=== PATIENT | male | born 1960 | race Caucasian/White ===

== ENCOUNTER 2016-10-23 21:13 | Observation (INO) | payer BC ==
[~2016-10-23] VITALS: Ht 180.3 cm; Wt 136.0 kg
[2016-10-23] MEDS ORDERED: ASPIRIN 324 MG CHEW ONE (21:27)
[2016-10-23] MEDS ORDERED: ATR10 PO (21:44)
[2016-10-23] MEDS ORDERED: GLC500 PO (21:44)
[2016-10-23] MEDS ORDERED: DIPH1TAB87 PO (21:44)
[2016-10-23] MEDS ORDERED: ATEN25TA PO (21:44)
[2016-10-23] MEDS ORDERED: PRLSR20 PO (21:44)
[2016-10-23] MEDS ORDERED: OMEP20TA PO (22:00)
[2016-10-23] MEDS ORDERED: CLB/200 PO (22:00)
[2016-10-23] MEDS ORDERED: METO50TA7 PO (22:00)
[2016-10-23] MEDS ORDERED: GABA-113 PO (22:00)
[2016-10-23] MEDS ORDERED: MULT-1056 PO (22:00)
[2016-10-23] MEDS ORDERED: ASPI81TA28 PO (22:00)
[2016-10-23] MEDS ORDERED: MCR/40125 PO (22:00)
[2016-10-23] MEDS ORDERED: WARF1TAB PO (22:00)
[2016-10-23] MEDS ORDERED: VGR50 PO (22:00)
[2016-10-23] MEDS ORDERED: TRAM-10 PO (22:00)
[2016-10-23] MEDS ORDERED: SODIUM CHLORIDE 0.9% 1000ML 1,000 ML IV STA (22:07)
[2016-10-23] MEDS ORDERED: MECLIZINE HCL 25 MG TAB PO STA (22:07)
--- NOTE | 2016-10-23 22:15 | EMERGENCY ROOM VISIT NOTE ---
History Report prepared by Marixa: Javier Espinoza Under the Supervision of: Dr. Herbie Patricio D.O. First contact with patient: 21:57 Chief Complaint: DIZZY Stated Complaint: DIZZY Nursing Triage Summary: pt states started feeling dizzy with head movement around 1800. Hx of vertigo. History of Present Illness The patient is a 56 year old male who presents to the Emergency Room with complaints of persistent dizziness that started around 1730 today. The patient describes a room-spinning sensation making it difficult for him to keep his balance. The patient initially became dizzy when he bent down to light a fire. He was outdoors all day and did not drink much fluids. The patient also complains of nausea but denies vomiting. He has a history of vertigo and notes that he felt similar then. The patient is not currently dizzy but feels it again when he moves his head. The patient's face felt numb for a brief period earlier today. His did not notice any speech slurring. The patient did not miss any of his medications. Source of History: patient Onset: 1730 today Position: other (global) Quality: other (dizziness) Timing: other (persistent) Modifying Factors (Worsening): movement Associated Symptoms: + nausea, + numbness, No vomiting Review of Systems See HPI for pertinent positives and negatives. A total of ten systems were reviewed and were otherwise negative. Past Medical & Surgical Medical Problems: (1) Diabetes (2) GERD (gastroesophageal reflux disease) (3) History of vertigo Family History No pertinent family history Social History Smoking Status: Former Smoker Marital Status: Housing Status: lives with family Current/Historical Medications Scheduled Aspirin (Aspirin Ec), 81 MG PO QAM Celecoxib (CeleBREX), 200 MG PO DAILY AT AM & NOON Gabapentin (Neurontin), 900 MG PO TID Metoprolol Succ (Toprol Xl) (Toprol-Xl), 50 MG PO QAM Multiple Vitamins W/ Minerals (Multivitamin Men 50+), 1 TAB PO QAM Omeprazole (Omeprazole), 20 MG PO QAM Telmisartan/Hctz (Micardis Hct 40MG/12.5MG), 2 TABS PO QAM Warfarin Sodium (Coumadin), Unknown Dose PO BID Scheduled PRN Sildenafil Citrate (Viagra), 50 MG PO PRN PRN for PRN Tramadol (Ultram), 50 MG PO Q8H PRN for Pain Allergies Coded Allergies: Acetaminophen (Verified Allergy, Severe, CHILLS, SWEATS, 10/23/16) Atorvastatin (Verified Allergy, Severe, SEVERE LEG CRAMPS, 10/23/16) Oxycodone (Verified Allergy, Severe, CHILLS, SWEATS, 10/23/16) Physical Exam Vital Signs Date Time Temp Pulse Resp B/P Pulse Ox O2 Delivery O2 Flow Rate FiO2 10/23/16 22:55 62 16 172/87 99 Room Air 10/23/16 22:12 98 Room Air 10/23/16 21:19 107 26 179/102 98 Room Air 10/23/16 21:19 82 Physical Exam GENERAL: Awake, alert, well-appearing, in no distress HENT: Normocephalic, atraumatic. Oropharynx unremarkable. EYES: Normal conjunctiva. Sclera non-icteric. NECK: Supple. No nuchal rigidity. FROM. No JVD. RESPIRATORY: Clear to auscultation. CARDIAC: Regular rate, normal rhythm. Extremities warm and well perfused. Pulses equal. ABDOMEN: Soft, non-distended. No tenderness to palpation. No rebound or guarding. No masses. RECTAL: Deferred. MUSCULOSKELETAL: Chest examination reveals no tenderness. The back is symmetrical on inspection without obvious abnormality. There is no CVA tenderness to palpation. No joint edema. LOWER EXTREMITIES: Calves are equal size bilaterally and non-tender. No edema. No discoloration. NEURO: Normal sensorium. No sensory or motor deficits noted. SKIN: No rash or jaundice noted. Medical Decision & Procedures ER Provider Diagnostic Interpretation: CT results as stated below per my review and radiologist interpretation HEAD CT NONCONTRAST CT DOSE: 614.27 mGy.cm HISTORY: dizziness TECHNIQUE: Multiaxial CT images of the head were performed without the use of intravenous contrast. Automated exposure control was utilized for this study. Comparison: None. Findings: The paranasal sinuses and mastoid air cells are clear. The calvarium and skull base are intact. The ventricles and sulci are within normal limits. There is no mass, hematoma, midline shift. No acute territorial infarct. A 4 mm hypodense focus within the left cerebellar hemisphere on image 11. Impression: A 4 mm hypodensity within the left cerebellar hemisphere. This is consistent within age-indeterminate lacunar infarct. Otherwise, no acute intracranial abnormality. Electronically signed by: Cipriano Banks M.D. 10/23/2016 11:10 PM Dictated Date/Time: 10/23/2016 11:01 PM Laboratory Results 10/23/16 20:45 Red Blood Count 5.21, Mean Corpuscular Volume 87.1, Mean Corpuscular Hemoglobin 30.5, Mean Corpuscular Hemoglobin Concent 35.0, Mean Platelet Volume 10.5, Neutrophils (%) (Auto) 82.6, Lymphocytes (%) (Auto) 11.1, Monocytes (%) (Auto) 5.0, Eosinophils (%) (Auto) 0.7, Basophils (%) (Auto) 0.3, Neutrophils # (Auto) 8.59, Lymphocytes # (Auto) 1.15, Monocytes # (Auto) 0.52, Eosinophils # (Auto) 0.07, Basophils # (Auto) 0.03 10/23/16 20:45 Test 10/23/16 20:45 10/23/16 22:13 10/23/16 22:20 10/23/16 22:24 White Blood Count 10.39 K/uL (4.8-10.8) Red Blood Count 5.21 M/uL (4.7-6.1) Hemoglobin 15.9 g/dL (14.0-18.0) Hematocrit 45.4 % (42-52) Mean Corpuscular Volume 87.1 fL (80-100) Mean Corpuscular Hemoglobin 30.5 pg (25-34) Mean Corpuscular Hemoglobin Concent 35.0 g/dl (32-36) Platelet Count 264 K/uL (130-400) Mean Platelet Volume 10.5 fL (7.4-10.4) Neutrophils (%) (Auto) 82.6 % Lymphocytes (%) (Auto) 11.1 % Monocytes (%) (Auto) 5.0 % Eosinophils (%) (Auto) 0.7 % Basophils (%) (Auto) 0.3 % Neutrophils # (Auto) 8.59 K/uL (1.4-6.5) Lymphocytes # (Auto) 1.15 K/uL (1.2-3.4) Monocytes # (Auto) 0.52 K/uL (0.11-0.59) Eosinophils # (Auto) 0.07 K/uL (0-0.5) Basophils # (Auto) 0.03 K/uL (0-0.2) RDW Standard Deviation 45.5 fL (36.4-46.3) RDW Coefficient of Variation 14.1 % (11.5-14.5) Immature Granulocyte % (Auto) 0.3 % Immature Granulocyte # (Auto) 0.03 K/uL (0.00-0.02) Anion Gap 9.0 mmol/L (3-11) Est Creatinine Clear Calc Drug Dose 162.0 ml/min Estimated GFR () 119.9 Estimated GFR (Non- 103.4 BUN/Creatinine Ratio 31.3 (10-20) Calcium Level 8.9 mg/dl (8.5-10.1) Total Bilirubin 0.4 mg/dl (0.2-1) Direct Bilirubin 0.1 mg/dl (0-0.2) Aspartate Amino Transf (AST/SGOT) 22 U/L (15-37) Alanine Aminotransferase (ALT/SGPT) 25 U/L (12-78) Alkaline Phosphatase 101 U/L (45-117) Total Protein 7.5 gm/dl (6.4-8.2) Albumin 4.0 gm/dl (3.4-5.0) Chemistry Specimen Hemolysis Bedside Troponin I 0.010 ng/ml (0-0.045) Urine Color YELLOW Urine Appearance CLEAR (CLEAR) Urine pH 6.5 (4.5-7.5) Urine Specific [place] 1.024 (1.000-1.030) Urine Protein NEG (NEG) Urine Glucose (UA) NEG (NEG) Urine Ketones NEG (NEG) Urine Occult Blood 1+ (NEG) Urine Nitrite NEG (NEG) Urine Bilirubin NEG (NEG) Urine Urobilinogen NEG (NEG) Urine Leukocyte Esterase NEG (NEG) Urine WBC (Auto) 0 /hpf (0-5) Urine RBC (Auto) 10-30 /hpf (0-4) Urine Hyaline Casts (Auto) 1-5 /lpf (0-5) Urine Epithelial Cells (Auto) 5-10 /lpf (0-5) Urine Bacteria (Auto) NEG (NEG) Bedside Glucose 114 mg/dl (70-99) Laboratory results reviewed by me Medications Administered Medications (Trade) Dose Ordered Sig/Arvind Route Start Time Stop Time Status Last Admin Dose Admin Sodium Chloride (Nss 1000ml) 1,000 ml @ 999 mls/hr Q1H1M STAT IV 10/23/16 22:07 10/23/16 23:07 DC 10/23/16 22:15 999 MLS/HR Meclizine HCl (Antivert Tab) 25 mg NOW STAT PO 10/23/16 22:07 10/23/16 22:10 DC 10/23/16 22:14 25 MG ECG Indication: other (dizziness) Rate (beats per minute): 71 Rhythm: sinus rhythm Findings: 1st degree AV block, RBBB, left axis deviation ED Course 2151: The patient was evaluated in room B6. A complete history and physical exam was performed. 2206: Antivert 25 mg PO, NSS 1000 ml @ 999 mls/hr. 2326: [facility]. The patient will be evaluated. 2329: Updated the patient. The patient is feeling better. Blood pressure is down. GCS 15. The patient was given full strength aspirin by EMS [employer]OR. Medical Decision Differential diagnosis includes syncope, near syncope, vertigo, TIA, dysrhythmia , metabolic derangement, dehydration. Patient's initial blood pressure is 172/102. Patient has a nonfocal neurologic exam. The symptoms started at 5 PM. Patient is not a TPA candidate at this time his NIH score is 0 Consults Time Called: [phone] Consulting Physician[facility] Returned Call: [phone] The patient will be evaluated Impression Primary Impression: TIA (transient ischemic attack) Additional Impression: Dizziness Scribe Attestation The scribe's documentation has been prepared under my direction and personally reviewed by me in its entirety. I confirm that the note above accurately reflects all work, treatment, procedures, and medical decision making performed by me. Departure Information Dispostion Being Evaluated By Hospitalist Referrals No Doctor, Assigned (PCP) Patient Instructions My [facility] Problem Qualifiers Primary Impression: TIA (transient ischemic attack) Transient cerebral ischemia type: unspecified Qualified Codes: G45.9 - Transient cerebral ischemic attack, unspecified
[2016-10-23 22:18] LABS: BASO % 0.3 %; BASO ABS # 0.03 K/uL (0-0.2); COMPLETE YES; EOS % 0.7 %; HEMATOCRIT 45.4 % (42-52); IG% 0.3 %; LYMPH % 11.1 %; LYMPH ABS # 1.15 K/uL (1.2-3.4); MEAN CELL VOLUME 87.1 fL (80-100); MEAN CORPUSCULAR HEMOGLOBIN 30.5 pg (25-34); MEAN PLATELET VOLUME 10.5 fL (7.4-10.4); NEUT % 82.6 %; PLATELET COUNT 264 K/uL (130-400); RED BLOOD COUNT 5.21 M/uL (4.7-6.1); WHITE BLOOD COUNT 10.39 K/uL (4.8-10.8)
[2016-10-23 22:33] LABS: BUN/CREATININE RATIO 31.3 (10-20); CALCIUM 8.9 mg/dl (8.5-10.1); CREATININE 0.71 mg/dl (0.60-1.40); POTASSIUM 3.6 mmol/L (3.5-5.1)
[2016-10-23 22:47] LABS: URINE APPEARANCE CLEAR (CLEAR); URINE BILIRUBIN NEG (NEG); URINE COLOR YELLOW; URINE NITRITE NEG (NEG); URINE PH 6.5 (4.5-7.5); URINE SPECIFIC GRAVITY 1.024 (1.000-1.030); UROBILINOGEN NEG (NEG)
[2016-10-23 22:48] LABS: MANUAL MICROSCOPIC REQUIRED? NO; REVIEW REQ? NO
--- NOTE | 2016-10-23 23:11 | DIAGNOSTIC IMAGING REPORT ---
HEAD CT NONCONTRAST CT DOSE: 614.27 mGy.cm HISTORY: dizziness TECHNIQUE: Multiaxial CT images of the head were performed without the use of intravenous contrast. Automated exposure control was utilized for this study. Comparison: None. Findings: The paranasal sinuses and mastoid air cells are clear. The calvarium and skull base are intact. The ventricles and sulci are within normal limits. There is no mass, hematoma, midline shift. No acute territorial infarct. A 4 mm hypodense focus within the left cerebellar hemisphere on image 11. Impression: A 4 mm hypodensity within the left cerebellar hemisphere. This is consistent within age-indeterminate lacunar infarct. Otherwise, no acute intracranial abnormality. Electronically signed by: Cipriano Banks M.D. 10/23/2016 11:10 PM Dictated Date/Time: 10/23/2016 11:01 PM
[2016-10-24] VITALS (7 sets, daily range): BP systolic 155–191; BP diastolic 93–120; PULSE 56–64; TEMP 36.6–36.7; O2SAT 96–100; Ht 180.3 cm; Wt 136.0 kg
[2016-10-24] MEDS ORDERED: PHARMACIST DISCHARGE MED REC CONSULT PRN (00:15)
[2016-10-24] MEDS ORDERED: ONDANSETRON INJ 2 MG/ML 2 ML VIAL IV PRN (00:15)
[2016-10-24 00:31] LABS: INR 2.8 (0.9-1.1)
--- NOTE | 2016-10-24 00:32 | History and Physical ---
History & Physical Date & Time of Service: Oct 24, 2016 at 00:32 Chief Complaint: DIZZY Primary Care Physician: Baljinder Carson D.O. History of Present Illness Source: patient, family Patient is a 56 Yr old male with PMH of HTN, Spinal stenosis, H/O Bicuspid aortic valve S/P AVR, Lumbago and other problems presents with history of sudden onset of dizziness which started around 5.30PM today. Patient states he had an episode of vertigo 2 yrs ago but these symptoms seemed to be different. She states experiencing "room spinning" sensation associated with difficulty to balance himself. States dizziness improves with closing his eyes and worsens with movement. Also states having nausea, bilateral lower extremity weakness and right sided facial tingling/numbness sensation which lasted for more than an hour. Currently he still feels he has some numbness of his face and his bilateral leg weakness is improving. Also states having right sided retrobulbar headache which is chronic for him. Denies any history of speech difficulty, facial deformity, fall, head trauma, blurry or double vision, bowel/bladder incontinence, chest pain, SOB, fever, chills, diarrhea, urinary symptoms. He takes Aspirin and Coumadin and denies missing his doses. Past Medical/Surgical History Medical Problems: (1) Diabetes Status: Chronic (2) GERD (gastroesophageal reflux disease) Status: Chronic (3) History of vertigo Status: Chronic PSH: B/L knee replacement S/P AV replacement Family History No pertinent family history Mother: Lung Cancer Father:Cancer Social History Smoking Status: Former Smoker Alcohol Use: socially Drug Use: marijuana Marital Status: Allergies Coded Allergies: Acetaminophen (Verified Allergy, Severe, CHILLS, SWEATS, 10/23/16) Atorvastatin (Verified Allergy, Severe, SEVERE LEG CRAMPS, 10/23/16) Oxycodone (Verified Allergy, Severe, CHILLS, SWEATS, 10/23/16) Home Medications Scheduled Aspirin (Aspirin Ec), 81 MG PO QAM Celecoxib (CeleBREX), 200 MG PO DAILY AT AM & NOON Gabapentin (Neurontin), 900 MG PO TID Metoprolol Succ (Toprol Xl) (Toprol-Xl), 50 MG PO QAM Multiple Vitamins W/ Minerals (Multivitamin Men 50+), 1 TAB PO QAM Omeprazole (Omeprazole), 20 MG PO QAM Telmisartan/Hctz (Micardis Hct 40MG/12.5MG), 2 TABS PO QAM Warfarin Sodium (Coumadin), Unknown Dose PO BID Scheduled PRN Sildenafil Citrate (Viagra), 50 MG PO PRN PRN for PRN Tramadol (Ultram), 50 MG PO Q8H PRN for Pain Review of Systems See HPI for pertinent positives & negatives. A total of 10 systems reviewed and were otherwise negative. Physical Exam Vital Signs Date Time Temp Pulse Resp B/P Pulse Ox O2 Delivery O2 Flow Rate FiO2 10/23/16 23:50 77 20 160/97 99 Room Air 10/23/16 22:55 62 16 172/87 99 Room Air 10/23/16 22:12 98 Room Air 10/23/16 21:19 107 26 179/102 98 Room Air 10/23/16 21:19 82 General Appearance: WD/WN, no apparent distress Head: normocephalic, atraumatic Eyes: normal inspection, PERRL, EOMI, sclerae normal ENT: normal ENT inspection, hearing grossly normal Neck: supple, no JVD, trachea midline Respiratory/Chest: chest non-tender, lungs clear, normal breath sounds, no respiratory distress, no accessory muscle use Cardiovascular: regular rate, rhythm, no edema, no murmur Abdomen/GI: normal bowel sounds, non tender, soft Back: normal inspection Extremities/Musculoskelatal: normal inspection, no pedal edema Neurologic/Psych: brush sander II-XII nml as tested, no motor/sensory deficits, alert, normal mood/affect, oriented x 3 Skin: normal color, warm/dry Diagnostics Laboratory Results Results Past 24 Hours Test 10/23/16 20:45 10/23/16 22:13 10/23/16 22:20 10/23/16 22:24 Range/Units White Blood Count 10.39 4.8-10.8 K/uL Red Blood Count 5.21 4.7-6.1 M/uL Hemoglobin 15.9 14.0-18.0 g/dL Hematocrit 45.4 42-52 % Mean Corpuscular Volume 87.1 80-100 fL Mean Corpuscular Hemoglobin 30.5 25-34 pg Mean Corpuscular Hemoglobin Concent 35.0 32-36 g/dl Platelet Count 264 130-400 K/uL Mean Platelet Volume 10.5 7.4-10.4 fL Neutrophils (%) (Auto) 82.6 % Lymphocytes (%) (Auto) 11.1 % Monocytes (%) (Auto) 5.0 % Eosinophils (%) (Auto) 0.7 % Basophils (%) (Auto) 0.3 % Neutrophils # (Auto) 8.59 1.4-6.5 K/uL Lymphocytes # (Auto) 1.15 1.2-3.4 K/uL Monocytes # (Auto) 0.52 0.11-0.59 K/uL Eosinophils # (Auto) 0.07 0-0.5 K/uL Basophils # (Auto) 0.03 0-0.2 K/uL RDW Standard Deviation 45.5 36.4-46.3 fL RDW Coefficient of Variation 14.1 11.5-14.5 % Immature Granulocyte % (Auto) 0.3 % Immature Granulocyte # (Auto) 0.03 0.00-0.02 K/uL Prothrombin Time 31.0 9.0-12.0 SECONDS Prothromb Time International Ratio 2.8 0.9-1.1 Sodium Level 140 136-145 mmol/L Potassium Level 3.6 3.5-5.1 mmol/L Chloride Level 103 98-107 mmol/L Carbon Dioxide Level 28 21-32 mmol/L Anion Gap 9.0 3-11 mmol/L Blood Urea Nitrogen 22 7-18 mg/dl Creatinine 0.71 0.60-1.40 mg/dl Est Creatinine Clear Calc Drug Dose 162.0 ml/min Estimated GFR () 119.9 Estimated GFR (Non- 103.4 BUN/Creatinine Ratio 31.3 10-20 Random Glucose 128 70-99 mg/dl Calcium Level 8.9 8.5-10.1 mg/dl Total Bilirubin 0.4 0.2-1 mg/dl Direct Bilirubin 0.1 0-0.2 mg/dl Aspartate Amino Transf (AST/SGOT) 22 15-37 U/L Alanine Aminotransferase (ALT/SGPT) 25 12-78 U/L Alkaline Phosphatase 101 45-117 U/L Total Protein 7.5 6.4-8.2 gm/dl Albumin 4.0 3.4-5.0 gm/dl Chemistry Specimen Hemolysis Bedside Troponin I 0.010 0-0.045 ng/ml Urine Color YELLOW Urine Appearance CLEAR CLEAR Urine pH 6.5 4.5-7.5 Urine Specific [place] 1.024 1.000-1.030 Urine Protein NEG NEG Urine Glucose (UA) NEG NEG Urine Ketones NEG NEG Urine Occult Blood 1+ NEG Urine Nitrite NEG NEG Urine Bilirubin NEG NEG Urine Urobilinogen NEG NEG Urine Leukocyte Esterase NEG NEG Urine WBC (Auto) 0 0-5 /hpf Urine RBC (Auto) 10-30 0-4 /hpf Urine Hyaline Casts (Auto) 1-5 0-5 /lpf Urine Epithelial Cells (Auto) 5-10 0-5 /lpf Urine Bacteria (Auto) NEG NEG Bedside Glucose 114 70-99 mg/dl Diagnostic Radiology CT head: A 4 mm hypodensity within the left cerebellar hemisphere. This is consistent within age-indeterminate lacunar infarct. Otherwise, no acute intracranial abnormality. EKG EKG: NSR, 1st degree AV block, RBBB Impression Assessment and Plan Acute CVA/TIA: Presented with dizziness, B/L LE weakness, balance issues, R facial numbness/ tingling, Nausea Currently no focal deficits on exam Not a candidate for tPA- Passed the window period Admit in Tele CT head: showed: age-indeterminate lacunar infarct of left cerebellar hemisphere. Stroke work up including lipid panel, A1C, MRI Brain, Carotid duplex, ECHO Speech and swallow eval Continue aspirin, Coumadin. Start Zocor. Patient has allergy to Lipitor Neuro checks, Neurology consult PT/OT Allow permissive HTN in setting of acute CVA. Hold Home HTN meds NPO for now PRN Zofran for nausea HTN: Mildly elevated Hold Home HTN meds in setting of acute CVA H/O Bicuspid Aortic Valve S/P AVR Continue ASA, Coumadin INR: therapeutic: 2.8 Takes 7.5 mg Coumadin daily except( Tue and Jayashree:10mg) at home Lumbago/H/O Spinal Stenosis: Stable S/P gastric band surgery Stable UA:Microscopic Hematuria Denies any bleeding issues Hb stable On ASA, Coumadin Monitor DVT Px: SCDs, INR: therapeutic CODE STATUS: Full code Disposition: Admit in Telemetry VTE Prophylaxis VTE Risk Assessment Done? Y/N: Yes Risk Level: Moderate
[2016-10-24] MEDS ORDERED: IV FLUIDS COMPLETED PRN (02:45)
[2016-10-24] MEDS: SODIUM CHLORIDE 0.9% 1000ML 1,000 ML IV SCH ×2 (05:01→17:01)
[2016-10-24] MEDS ORDERED: LORAZEPAM 2 MG/ML 1 ML VIAL IV ONE (06:45)
[2016-10-24] MEDS: TRAMADOL HCL 50 MG TAB PO PRN ×3 (07:54→23:25)
[2016-10-24] MEDS: GABAPENTIN 300 MG CAP PO SCH ×3 (07:55→21:19)
[2016-10-24] MEDS: MECLIZINE HCL 12.5 MG TAB PO PRN ×2 (07:55→16:59)
[2016-10-24] MEDS: CeleBREX 200 MG CAP PO SCH ×2 (07:55→18:54)
[2016-10-24] MEDS: PANTOprazole SOD 40 MG TAB PO SCH (07:55)
[2016-10-24] MEDS: ASPIRIN 81 MG ECTAB PO SCH (07:56)
[2016-10-24 08:30] LABS: INR 3.3 (0.9-1.1); PROTHROMBIN TIME (PATIENT) 36.6 SECONDS (9.0-12.0)
--- NOTE | 2016-10-24 08:36 | DIAGNOSTIC IMAGING REPORT ---
CAROTID ARTERY ULTRASOUND CLINICAL HISTORY: Stroke COMPARISON STUDY: None. TECHNIQUE: Real-time, grayscale, and color Doppler sonography of the carotid and vertebral arteries was performed. Images were viewed in the transverse and longitudinal planes. FINDINGS: There is mild atherosclerotic plaque. Velocity measurements are listed below. COMMON CAROTID PEAK SYSTOLIC VELOCITY (CM/S): RIGHT 61 LEFT 63 ICA PEAK SYSTOLIC VELOCITY (CM/S): RIGHT 72 LEFT 72 Systolic ratios between the internal to common carotid arteries were normal. Antegrade flow is seen in the vertebral arteries. The external carotid arteries are patent. Blood pressure could not be obtained in this patient due to IV. IMPRESSION: No evidence of a hemodynamically significant stenosis. Electronically signed by: Dangelo Victoria M.D. 10/24/2016 8:35 AM Dictated Date/Time: 10/24/2016 8:34 AM
--- NOTE | 2016-10-24 11:08 | Progress Note ---
Medicine Progress Note Date & Time of Visit: Oct 24, 2016 at 11:07. Subjective patient seen sitting up in bed, appears comfortable states dizziness, facial numbness have resolved still feels unsteady when trying to ambulate denies chest pain, dyspnea, palpitations no other symptoms Objective Last 8 Hrs Date Time Temp Pulse Resp B/P Pulse Ox O2 Delivery O2 Flow Rate FiO2 10/24/16 08:05 Room Air 10/24/16 07:50 36.6 56 18 165/97 100 Room Air 10/24/16 04:00 Room Air Physical Exam: General- oriented x 3, not in distress, speaks in sentences with no effort Head- atraumatic Eyes- EOMI, anicteric ENT- oropharynx clear Neck- supple, no JVD, no adenopathy, no thyromegaly no bruits appreciated Lungs- clear to auscultation b/l Heart- regular rhythm; no murmur, normal rate Abdomen- normal bowel sounds, soft, nontender Extremities- no pretibial edema, no calf tenderness; peripheral pulses intact Neuro- alert, oriented x 3; CN 2-12 grossly intact, motor 5/5 , sensation 100% on all ext, somewhat unsteady with walking Skin- warm & dry Laboratory Results: Last 24 Hours Test 10/23/16 20:45 10/23/16 22:13 10/23/16 22:20 10/23/16 22:24 White Blood Count 10.39 K/uL Red Blood Count 5.21 M/uL Hemoglobin 15.9 g/dL Hematocrit 45.4 % Mean Corpuscular Volume 87.1 fL Mean Corpuscular Hemoglobin 30.5 pg Mean Corpuscular Hemoglobin Concent 35.0 g/dl Platelet Count 264 K/uL Mean Platelet Volume 10.5 fL Neutrophils (%) (Auto) 82.6 % Lymphocytes (%) (Auto) 11.1 % Monocytes (%) (Auto) 5.0 % Eosinophils (%) (Auto) 0.7 % Basophils (%) (Auto) 0.3 % Neutrophils # (Auto) 8.59 K/uL Lymphocytes # (Auto) 1.15 K/uL Monocytes # (Auto) 0.52 K/uL Eosinophils # (Auto) 0.07 K/uL Basophils # (Auto) 0.03 K/uL RDW Standard Deviation 45.5 fL RDW Coefficient of Variation 14.1 % Immature Granulocyte % (Auto) 0.3 % Immature Granulocyte # (Auto) 0.03 K/uL Prothrombin Time 31.0 SECONDS Prothromb Time International Ratio 2.8 Sodium Level 140 mmol/L Potassium Level 3.6 mmol/L Chloride Level 103 mmol/L Carbon Dioxide Level 28 mmol/L Anion Gap 9.0 mmol/L Blood Urea Nitrogen 22 mg/dl Creatinine 0.71 mg/dl Est Creatinine Clear Calc Drug Dose 162.0 ml/min Estimated GFR () 119.9 Estimated GFR (Non- 103.4 BUN/Creatinine Ratio 31.3 Random Glucose 128 mg/dl Calcium Level 8.9 mg/dl Total Bilirubin 0.4 mg/dl Direct Bilirubin 0.1 mg/dl Aspartate Amino Transf (AST/SGOT) 22 U/L Alanine Aminotransferase (ALT/SGPT) 25 U/L Alkaline Phosphatase 101 U/L Total Protein 7.5 gm/dl Albumin 4.0 gm/dl Chemistry Specimen Hemolysis Bedside Troponin I 0.010 ng/ml Urine Color YELLOW Urine Appearance CLEAR Urine pH 6.5 Urine Specific [place] 1.024 Urine Protein NEG Urine Glucose (UA) NEG Urine Ketones NEG Urine Occult Blood 1+ Urine Nitrite NEG Urine Bilirubin NEG Urine Urobilinogen NEG Urine Leukocyte Esterase NEG Urine WBC (Auto) 0 /hpf Urine RBC (Auto) 10-30 /hpf Urine Hyaline Casts (Auto) 1-5 /lpf Urine Epithelial Cells (Auto) 5-10 /lpf Urine Bacteria (Auto) NEG Bedside Glucose 114 mg/dl Test 10/24/16 08:01 Prothrombin Time 36.6 SECONDS Prothromb Time International Ratio 3.3 Assessment & Plan 56 year old male with history of Mechanical Aortic Valve on coumadin, Hypertension, Spinal Stenosis presenting with dizziness, facial numbness. DIZZINESS, ATAXIA, FACIAL NUMBNESS R/O CVA/TIA CT head: showed: age-indeterminate lacunar infarct of left cerebellar hemisphere. -- check Brain MRI, Neck MRA -- already on Aspirin, Coumadin intolerant to statins keep BP on the high side- hold Metoprolol, Talmesartan/HCTZ -- discussed case with Dr. Luna HTN: keep BP on the high side- hold Metoprolol, Talmesartan/HCTZ H/O Bicuspid Aortic Valve S/P AVR Continue ASA, Coumadin INR: therapeutic: 3.3 Takes 7.5 mg Coumadin daily except( Tue and Jayashree:10mg) at home Lumbago/H/O Spinal Stenosis: Stable S/P gastric band surgery Stable UA:Microscopic Hematuria Denies any bleeding issues Hb stable On ASA, Coumadin Monitor DVT Px: SCDs, INR: therapeutic CODE STATUS: Full code Disposition: pending lives at home with family Neurology eval in progress Current Inpatient Medications: Current Inpatient Medications Medications (Trade) Dose Ordered Sig/Arvind Route Start Time Stop Time Status Last Admin Dose Admin Miscellaneous Information 1 ea 1 ea UD PRN N/A 10/24/16 00:15 11/23/16 00:14 Sodium Chloride (Nss 1000ml) 1,000 ml @ 75 mls/hr [id number] IV 10/24/16 00:05 11/23/16 00:04 10/24/16 05:01 75 MLS/HR Ondansetron HCl (Zofran Inj) 4 mg Q6H PRN IV 10/24/16 00:15 11/23/16 00:14 Meclizine HCl (Antivert Tab) 12.5 mg TID PRN PO 10/24/16 00:30 11/23/16 00:29 10/24/16 07:55 12.5 MG Aspirin (Ecotrin Tab) 81 mg QAM PO 10/24/16 09:00 11/23/16 08:59 10/24/16 07:56 81 MG Gabapentin (Neurontin Cap) 900 mg TID PO 10/24/16 09:00 11/23/16 08:59 10/24/16 07:55 900 MG Tramadol HCl (Ultram Tab) 50 mg Q8H PRN PO 10/24/16 00:30 11/23/16 00:29 10/24/16 07:54 50 MG Pantoprazole Sodium (Protonix Tab) 40 mg QAM PO 10/24/16 09:00 11/23/16 08:59 10/24/16 07:55 40 MG Celecoxib (CeleBREX CAP) 200 mg BID PO 10/24/16 09:00 11/23/16 08:59 10/24/16 07:55 200 MG Warfarin Sodium (Coumadin Tab) 7.5 mg SuMoWeFrSa@1600 PO 10/24/16 16:00 11/23/16 15:59 Miscellaneous (Iv Fluids Completed) 1 ea PRN PRN N/A 10/24/16 02:45 10/24/17 02:44 Warfarin Sodium (Coumadin Tab) 10 mg TuTh@1600 PO 10/26/16 16:00 11/25/16 15:59
[2016-10-24] MEDS ORDERED: METOPROLOL SUCC 50MG EXT REL TAB PO ONE (13:31)
[2016-10-24] MEDS ORDERED: LORAZEPAM 2 MG/ML 1 ML VIAL ONE (14:31)
--- NOTE | 2016-10-24 15:41 | ECHOCARDIOGRAM REPORT ---
*NOTICE TO RECEIVING LIBERTARIAN AGENCY This information is strictly Confidential and protected under [place] law. [place] law prohibits you from making any further disclosure of this information unless further disclosure is expressly permitted by the written consent of the person to whom it pertains or is authorized by law. A general authorization for the release of medical or other information is not sufficient for this purpose. Hospital accepts no responsibility if the information is made available to any other person, INCLUDING THE PATIENT. Interpretation Summary * Name: FLAKITA MISTRY Study Date: 10/24/2016 09:04 AM BP: 185/94 mmHg * Patient Location: C.2E\S\E202\S\1 HR: 64 * : 1960 (M/d/yyyy) Gender: Male Height: 71 in * Age: 56 yrs Ethnicity: CA Weight: 307 lb * Ordering Physician: Luis Yang * Referring Physician: Self, Referred * Performed By: Kalyn Ferrari RCS * * Reason For Study: CVA * BSA: 2.5 m2 * The study was technically limited. * -- Conclusions -- * This study is technically limited. * Atrial septum appears to be intact but contrast study was poor. * There is a bioprosthetic aortic valve. * There is moderate concentric left ventricular hypertrophy. * Ejection Fraction = 60-65%. * The right ventricular systolic function is normal. * If clinically indicated, recommend DIO. Procedure Details * A complete two-dimensional transthoracic echocardiogram was performed (2D, M-mode, Doppler and color flow Doppler). * A saline contrast injection was performed to assess for cardiac shunting. * The injection was performed through an intravenous line in the left arm. * A total of 20 cc of agitated saline was given. * The attending nurse who injected the saline contrast was Mile Ayala RN. Left Ventricle * The left ventricle is normal in size. * There is moderate concentric left ventricular hypertrophy. * Ejection Fraction = 60-65%. * The left ventricular wall motion is normal. Right Ventricle * The right ventricle is normal size. * The right ventricular systolic function is normal. Atria * The left atrial size is normal. * Right atrial size is normal. * The interatrial septum is intact with no evidence for an atrial septal defect. Mitral Valve * There is moderate mitral annular calcification. * The mitral valve leaflets appear thickened, but open well. * Significant mitral regurgitation is absent. Tricuspid Valve * The tricuspid valve is not well visualized, but is grossly normal. * Significant tricuspid regurgitation is absent. Aortic Valve * The aortic valve is not well visualized. * No hemodynamically significant valvular aortic stenosis. * There is no significant aortic regurgitation. * There is a bioprosthetic aortic valve. Pulmonic Valve * The pulmonic valve is not well visualized. * There is no significant pulmonary regurgitation. MMode 2D Measurements and Calculations IVSd 1.1 cm IVSs 1.3 cm LVIDd 4.8 cm LVIDs 3.3 cm LVPWd 1.1 cm LVPWs 1.4 cm IVS/LVPW 1.0 FS 31.7 % EDV(Teich) 105.8 ml ESV(Teich) 42.7 ml EF(Teich) 59.7 % EDV(cubed) 108.3 ml ESV(cubed) 34.5 ml EF(cubed) 68.2 % % IVS thick 22.1 % % LVPW thick 24.7 % LV mass(C)d 187.8 grams LV mass(C)dI 74.2 grams/m\S\2 LV mass(C)s 145.2 grams LV mass(C)sI 57.4 grams/m\S\2 CO(Teich) 4.2 l/min CI(Teich) 1.7 l/min/m\S\2 SV(Teich) 63.1 ml SI(Teich) 25.0 ml/m\S\2 CO(cubed) 4.9 l/min CI(cubed) 2.0 l/min/m\S\2 SV(cubed) 73.9 ml SI(cubed) 29.2 ml/m\S\2 Ao root diam 2.9 cm Ao root area 6.7 cm\S\2 LA dimension 3.5 cm LA/Ao 1.2 LVAd ap4 43.1 cm\S\2 LVLd ap4 9.7 cm EDV(MOD-sp4) 158.0 ml LVAs ap4 23.0 cm\S\2 LVLs ap4 7.9 cm ESV(MOD-sp4) 56.0 ml EF(MOD-sp4) 64.6 % LVAd ap2 38.7 cm\S\2 LVLd ap2 9.7 cm EDV(MOD-sp2) 129.0 ml LVAs ap2 19.2 cm\S\2 LVLs ap2 8.1 cm ESV(MOD-sp2) 40.0 ml EF(MOD-sp2) 69.0 % CO(MOD-sp4) 6.8 l/min CI(MOD-sp4) 2.7 l/min/m\S\2 SV(MOD-sp4) 102.0 ml SI(MOD-sp4) 40.3 ml/m\S\2 CO(MOD-sp2) 6.0 l/min CI(MOD-sp2) 2.4 l/min/m\S\2 SV(MOD-sp2) 89.0 ml SI(MOD-sp2) 35.2 ml/m\S\2 Doppler Measurements and Calculations MV E max dino 101.1 cm/sec MV A max dino 90.7 cm/sec MV E/A 1.1 MV P1/2t max dino 142.8 cm/sec MV P1/2t 87.0 msec MVA(P1/2t) 2.5 cm\S\2 MV dec slope 481.0 cm/sec\S\2 MV dec time 0.26 sec Ao V2 max 285.6 cm/sec Ao max PG 32.6 mmHg Ao max PG (full) 29.4 mmHg Ao V2 mean 203.2 cm/sec Ao mean PG 18.4 mmHg Ao mean PG (full) 16.7 mmHg Ao V2 VTI 65.1 cm LV V1 max PG 3.3 mmHg LV V1 mean PG 1.7 mmHg LV V1 max 90.3 cm/sec LV V1 mean 60.8 cm/sec LV V1 VTI 21.2 cm SV(Ao) 433.9 ml SI(Ao) 171.5 ml/m\S\2 PA V2 max 99.9 cm/sec PA max PG 4.2 mmHg
[2016-10-24] MEDS ORDERED: WARFARIN SOD 7.5 MG TAB PO SCH (16:00)
--- NOTE | 2016-10-24 16:25 | DIAGNOSTIC IMAGING REPORT ---
MRI OF THE BRAIN WITHOUT AND WITH IV CONTRAST CLINICAL HISTORY: Dizziness. Facial numbness. Transient ischemic attack. COMPARISON STUDY: Head CT October 23, 2016. TECHNIQUE: Utilizing a 1.5 Fela magnet and dedicated coil, multiplanar, multiecho imaging of the brain was performed pre and postcontrast administration. IV administration of 14 mL of Gadavist contrast was uneventful. FINDINGS: There are no areas of restricted diffusion. No acute intracranial hemorrhage, midline shift or mass effect is present. Brain volume is normal. Ventricular system is normal. Basilar cisterns are patent. There are no extra axial collections. Flow-voids for the major intracranial vessels are present. There are no intracranial masses or areas of pathologic enhancement. An old 7 mm lacunar infarct within the left cerebellar hemisphere corresponds to the abnormality on prior head CT. A few white matter T2 hyperintense foci suggest minimal small vessel disease. IMPRESSION: 1. No acute intracranial findings. 2. No intracranial masses or pathologic enhancement. 3. 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 Electronically signed by: Dangelo Victoria M.D. 10/24/2016 4:24 PM Dictated Date/Time: 10/24/2016 4:20 PM
--- NOTE | 2016-10-24 16:33 | DIAGNOSTIC IMAGING REPORT ---
MRA OF THE INTRACRANIAL CIRCULATION WITHOUT CONTRAST CLINICAL HISTORY: Dizziness. Facial numbness. COMPARISON STUDY: None. TECHNIQUE: Utilizing a 1.5 Fela magnet and 3-D [id number] technique, unenhanced MRA of the intracranial circulation was obtained. FINDINGS: This exam is mildly compromised by motion artifact. The bilateral M1, M2, A1 and A2 segments are patent. The posterior circulation is intact. The left vertebral artery is dominant. Sensitivity for detection of small aneurysms is diminished but none are identified on this examination. There is no abrupt vessel cut off. There is persistence of the left posterior cerebral artery. IMPRESSION: Unremarkable MRA of the intracranial circulation. Electronically signed by: Dangelo Victoria M.D. 10/24/2016 4:31 PM Dictated Date/Time: 10/24/2016 4:28 PM
--- NOTE | 2016-10-24 16:41 | DIAGNOSTIC IMAGING REPORT ---
MRA OF THE NECK WITH AND WITHOUT CONTRAST CLINICAL HISTORY: Dizziness. Facial numbness. Transient ischemic attack. COMPARISON STUDY: Carotid ultrasound October 24, 2016. TECHNIQUE: Unenhanced and contrast-enhanced MRA of the neck was performed. Injection of 14 mL of Magnevist IV was uneventful. NASCET criteria were utilized to estimate the degree of carotid stenosis. FINDINGS: The bilateral common carotid and internal carotid arteries are patent. There is no significant stenosis within the vessels. The left vertebral artery is dominant and patent. There is moderate stenosis at origin the right vertebral artery. No dissection is noted within major vasculature of the neck. IMPRESSION: 1. No stenosis of the bilateral common carotid and internal carotid arteries. 2. Dominant, patent left vertebral artery. Moderate stenosis at the origin the right vertebral artery. Electronically signed by: Dangelo Victoria M.D. 10/24/2016 4:40 PM Dictated Date/Time: 10/24/2016 4:37 PM
[2016-10-24] MEDS ORDERED: CLONIDINE HCL 0.1 MG TAB PO PRN (17:15)
--- NOTE | 2016-10-24 18:37 | PROGRESS NOTE ---
DATE: 10/24/2016 Elvis's MRI images are back on the chart and interpretation is complete. There is no significant extracranial vascular stenosis. The left vertebral artery is dominant, but the right vertebral is patent and there is no evidence for a dissection or occlusion and more importantly, the MRI of the brain shows no evidence for an acute infarction in the right lateral medullary plate or cerebellar pathways other than an old lacunar infarction on the left which really would not explain any of his current symptomatology. My initial consultation note has not yet been transcribed but at this point, if he is doing well, his blood pressure is stable, there are no cardiac arrhythmias, etc. he could probably be sent home tomorrow on his regular Coumadin and aspirin as we really do not have any evidence at this time that he has had a new infarction. The differential diagnosis remains that of a TIA, possibly embolic in light of his aortic valvular disease, but I am also wondering if this was not an atypical migraine with aura as he has had similar issues at least to some degree in the past, particularly with a visual aura which would imply a posterior circulation vasospastic process. For now, however, again I do not see any need for further neurological evaluation beyond what has already been done and if he is clinically stable, he can probably be discharged tomorrow without either Ladonna Nation or myself having to sign off the case.
[2016-10-24] MEDS ORDERED: NURSING VERBAL MED ORDER ONE ×2 (19:00→19:15)
[2016-10-24] MEDS ORDERED: SIMVASTATIN 20 MG TAB PO SCH (21:00)
[2016-10-25] VITALS: BP 122/74; PULSE 57; TEMP 36.5; O2SAT 96
[2016-10-25 03:57] VITALS: BP 138/76; PULSE 58; TEMP 36.5; O2SAT 96
[2016-10-25 05:59] LABS: BASO % 0.3 %; BASO ABS # 0.02 K/uL (0-0.2); COMPLETE YES; EOS % 2.1 %; HEMATOCRIT 43.3 % (42-52); IG% 0.2 %; LYMPH % 19.6 %; LYMPH ABS # 1.23 K/uL (1.2-3.4); MEAN CELL VOLUME 87.1 fL (80-100); MEAN CORPUSCULAR HEMOGLOBIN 29.4 pg (25-34); MEAN CORPUSCULAR HGB CONC 33.7 g/dl (32-36); MEAN PLATELET VOLUME 10.1 fL (7.4-10.4); MONO % 6.2 %; NEUT % 71.6 %; PLATELET COUNT 242 K/uL (130-400); RED BLOOD COUNT 4.97 M/uL (4.7-6.1); WHITE BLOOD COUNT 6.29 K/uL (4.8-10.8)
[2016-10-25 06:08] LABS: INR 2.8 (0.9-1.1); PROTHROMBIN TIME (PATIENT) 31.6 SECONDS (9.0-12.0)
[2016-10-25 06:32] LABS: ESTIMATED AVERAGE GLUCOSE 105 mg/dl; HA1C FLAG Normal (Normal)
[2016-10-25 06:35] LABS: BUN/CREATININE RATIO 26.8 (10-20); CALCIUM 8.6 mg/dl (8.5-10.1); CREATININE 0.64 mg/dl (0.60-1.40); POTASSIUM 3.6 mmol/L (3.5-5.1)
[2016-10-25 06:38] LABS: CHOLESTEROL/HDL RATIO 4.7
--- NOTE | 2016-10-25 07:55 | NEUROLOGY CONSULTATION ---
DATE OF CONSULTATION: 10/24/2016 REQUESTED BY: Dr. Matt Chen. HISTORY OF PRESENT ILLNESS: Elvis is 56 years old, lives in [place], is followed by the [facility] and also by the [facility]. [place] and was doing well up until about 4 in the afternoon yesterday when he suddenly developed a vertiginous sensation with rotation to the right then developed some facial numbness, dystaxia and this persisted for several hours. The family finally brought him into the Emergency Room and he was seen here, probably around 9:30 or 10:00 at night, at which point things were beginning to cool down a little bit and numbness had largely disappeared and he had a right retrobulbar headache and in fac in retrospect, he thinks this may have been one of the precipitating features of the entire event as he does get these not infrequently. He also has a history of acephalgic migraines with periodic spontaneous appearance of yellow colored lights in his visual field and occasionally these are associated with headaches but most of the time it is simple visual phenomena. He does have a history of vertiginous episode about 2 years ago. On that occasion I believe he felt he was being pulled to the left although on recall this is pretty vague and this persisted for several hours, but by the time he went to local ER it too had vanished and he was sent home. He also had a post intercourse episode of amnesia sounding very much like a transient global amnesia about a year after that with accompanying headache. This too was of short duration. All of this occurs in the setting of past medical history of hypertension, spinal stenosis. He has a bicuspid aortic valve status post aortic valve replacement and has chronic back pain, knee pain and hip pain and has degenerative arthritis involving most of his major joints. The result of the back and leg issues is that his gait has a chronic sensation of instability, but he definitely feels that things are worse now. Otherwise, his recent health has been unremarkable. He has not had any fevers, sweats, chills or other issues referable to head, eyes, ears, nose and throat, cardiovascular, pulmonary, gastrointestinal, genitourinary, musculoskeletal systems. He was seen in our ER, he was felt to be outside the TPA window and his INR was well within therapeutic range, so he was not a TPA candidate on that basis and furthermore his symptoms were beginning to clear and in fact have cleared now almost completely with the exception of the gait disturbance. He did have a CAT scan which describes a 4 mm lacunar infarction in the cerebellum. I really cannot appreciate this but perhaps a large PACs imaging screen the radiologist can feel a little more secure in identifying it. He has had no other testing at this point and we are waiting for an MRI and MRA of the intracranial vessels and a duplex of the carotids. Other medical problems besides the hypertension and spinal stenosis, bicuspid aortic valve, include diabetes, gastroesophageal reflux ad again the history of vertigo, migraines with visual aura and the transient global amnestic like episode described above. Surgically he has had the aortic valve, bilateral knee replacements and apparently is due for some hip replacements, or at least is being considered for this. FAMILY HISTORY: Reveals his mother had lung cancer. Father had cancer -- unknown type. SOCIAL HISTORY: Reveals him to be a former smoker. He consumes ethanol socially. He does consume marijuana. He is and he is employed. ALLERGIES: HE HAS ALLERGIES TO TYLENOL, ATORVASTATIN, OXYCODONE. HOME MEDICATION LIST: Includes 81 mg of aspirin, Celebrex, gabapentin 900 mg 3 times a day, metoprolol, multivitamins, omeprazole, Micardis and Coumadin followed by apparently a local Coumadin clinic. He has p.r.n. medications Viagra and tramadol. REVIEW OF SYSTEMS: As described above, i.e. largely negative with the exception of the issues surrounding his acute illness and his past medical history. PHYSICAL EXAMINATION: VITAL SIGNS: On examination in the Emergency Room his blood pressure 160/97, pulse was 77, respirations 20 and O2 saturation 99% on room air. GENERAL: He was moderately over nourished, but appeared to be in no acute distress. He was alert and oriented. HEAD, EYES, EARS, NOSE, AND THROAT: There were no cranial deformities. No carotid bruits were heard. LUNGS: Clear. HEART: Had a regular rate and rhythm. No murmurs were recorded despite the presence of the aortic valve. ABDOMEN: Soft, nontender. EXTREMITIES: Free of edema and good peripheral pulses. NEUROLOGIC: Today neurologically he is awake, alert, oriented. I do not see any nystagmus. I do not see any Mayuri syndrome, specifically on the right. Facial sensation is normal bilaterally blink reflex is normal. Tongue protrudes in the midline. Facial motility and strength is normal. Speech is clear. [place] is nonspecifically unsteady, a little broad-based but I do not see any overt ataxia or spasticity. Reflexes if anything are hypoactive. Toes are downgoing. No Trish's signs are seen. Muscle strength testing is normal. I do not see any atrophy or fasciculations. Sensory examination is intact to vibration and light touch, temperature. I do not see any drift or pronation sign. There is no cerebellar dysmetria on [id number] or even heel to lombardi testing. Basic laboratory studies are fine. The INR was well within the therapeutic range. Imaging studies are limited to those described above. At present one has to assume this was a small vascular event, perhaps involving the lateral medullary plate and the cerebellar pathways passing through this area in the inferior cerebellar peduncle. Acute ipsilateral retrobulbar headache, facial numbness and ataxia and vertigo are not uncommon symptoms of ischemia in this area and if so with his cardiac valve replaced, this could have been embolic. Unfortunately, this man also has a migraine headache history, has had prior episodes of vertigo and at present we are not sure this could not have been a migraine equivalent. Whatever the case, we do need imaging studies. We are not going to do anything new with his anticoagulation until these are back and he is going to have the ultimate decision made by his vascular team at [facility] and physicians in the [place] area. For now, however, we will await the results imaging, probably keep him overnight and if stable and no infarction is seen he could likely be discharged with followup in his primary area of residence. SALLY
[2016-10-25] MEDS: ASPIRIN 81 MG ECTAB PO SCH (08:05)
[2016-10-25] MEDS: PANTOprazole SOD 40 MG TAB PO SCH (08:05)
[2016-10-25] MEDS: CeleBREX 200 MG CAP PO SCH (08:06)
[2016-10-25] MEDS: GABAPENTIN 300 MG CAP PO SCH (08:06)
[2016-10-25] MEDS: TRAMADOL HCL 50 MG TAB PO PRN (08:11)
[2016-10-25 08:21] VITALS: BP 164/104; PULSE 71; TEMP 36.5; O2SAT 96
[2016-10-25] MEDS ORDERED: METOPROLOL SUCC 50MG EXT REL TAB PO SCH (09:00)
--- NOTE | 2016-10-25 10:21 | Progress Note ---
Medicine Progress Note Date & Time of Visit: October 25, 2016 at 10:06. Subjective sitting up in bedside chair, in good spirits states he feels much better today denies headache, dizziness, focal weakness/numbness ambulating much better no chest pain, dyspnea, palpitations no other symptoms states he is ready for discharge today Objective Last 8 Hrs Date Time Temp Pulse Resp B/P Pulse Ox O2 Delivery O2 Flow Rate FiO2 10/25/16 08:21 36.5 71 20 164/104 96 Room Air 10/25/16 04:00 Room Air 10/25/16 03:57 36.5 58 18 138/76 96 Room Air Physical Exam: General- oriented x 3, not in distress, speaks in sentences with no effort ENT- oropharynx clear Neck- no JVD Lungs- clear breath sounds bilaterally, no rales/wheezes Heart- regular rhythm; no murmur, normal rate Abdomen- normal bowel sounds, soft, nontender Extremities- no pretibial edema, no calf tenderness; peripheral pulses intact Neuro- alert, oriented x 3; CN 2-12 grossly intact, motor 5/5 , sensation 100% on all ext no other gross focal deficits Skin- warm & dry Laboratory Results: Last 24 Hours Test 10/25/16 05:26 White Blood Count 6.29 K/uL Red Blood Count 4.97 M/uL Hemoglobin 14.6 g/dL Hematocrit 43.3 % Mean Corpuscular Volume 87.1 fL Mean Corpuscular Hemoglobin 29.4 pg Mean Corpuscular Hemoglobin Concent 33.7 g/dl Platelet Count 242 K/uL Mean Platelet Volume 10.1 fL Neutrophils (%) (Auto) 71.6 % Lymphocytes (%) (Auto) 19.6 % Monocytes (%) (Auto) 6.2 % Eosinophils (%) (Auto) 2.1 % Basophils (%) (Auto) 0.3 % Neutrophils # (Auto) 4.51 K/uL Lymphocytes # (Auto) 1.23 K/uL Monocytes # (Auto) 0.39 K/uL Eosinophils # (Auto) 0.13 K/uL Basophils # (Auto) 0.02 K/uL RDW Standard Deviation 45.1 fL RDW Coefficient of Variation 14.1 % Immature Granulocyte % (Auto) 0.2 % Immature Granulocyte # (Auto) 0.01 K/uL Prothrombin Time 31.6 SECONDS Prothromb Time International Ratio 2.8 Sodium Level 141 mmol/L Potassium Level 3.6 mmol/L Chloride Level 105 mmol/L Carbon Dioxide Level 29 mmol/L Anion Gap 7.0 mmol/L Blood Urea Nitrogen 17 mg/dl Creatinine 0.64 mg/dl Est Creatinine Clear Calc Drug Dose 177.2 ml/min Estimated GFR () 125.1 Estimated GFR (Non- 107.9 BUN/Creatinine Ratio 26.8 Random Glucose 111 mg/dl Calcium Level 8.6 mg/dl Triglycerides Level 152 mg/dl Cholesterol Level 183 mg/dl HDL Cholesterol 39 mg/dl LDL Cholesterol, Calculated 114 mg/dl VLDL Cholesterol, Calculated 30 mg/dl Cholesterol/HDL Ratio 4.7 Assessment & Plan 56 year old male with history of Mechanical Aortic Valve on coumadin, Hypertension, Spinal Stenosis presenting with dizziness, facial numbness. DIZZINESS, ATAXIA, FACIAL NUMBNESS POSSIBLE TRANSIENT ISCHEMIC ATTACK (TIA), LIKELY EMBOLIC POSSIBLE ATYPICAL MIGRAINE, WITH AURA -- CT head: showed: age-indeterminate lacunar infarct of left cerebellar hemisphere. -- Brain MRI: 1. No acute intracranial findings. 2. No intracranial masses or pathologic enhancement. 3. Old 7 mm lacunar infarct within left cerebellar hemisphere which corresponds to the abnormality on prior head CT Head MRA: Unremarkable MRA of the intracranial circulation. Neck MRA: 1. No stenosis of the bilateral common carotid and internal carotid arteries. 2. Dominant, patent left vertebral artery. Moderate stenosis at the origin the right vertebral artery. Echo: * -- Conclusions -- * This study is technically limited. * Atrial septum appears to be intact but contrast study was poor. * There is a bioprosthetic aortic valve. * There is moderate concentric left ventricular hypertrophy. * Ejection Fraction = 60-65%. * The right ventricular systolic function is normal. * If clinically indicated, recommend DIO -- evaluated by Neurologist- Dr. Luna episode felt to be either embolic TIA vs. Atypical Migraine with aura -- recommend to continue Aspirin, Coumadin intolerant to statins -- ff up with [facility] and PCP LACUNAR INFARCT, CHRONIC - seen on Brain MRI: Old 7 mm lacunar infarct within left cerebellar hemisphere which corresponds to the abnormality on prior head CT - no previous CVA history per patient - recommend to continue Aspirin, Coumadin intolerant to statins HTN: - mildly elevated given PRN Clonidine - resume usual Metoprolol, Telmisartan/HCTZ Bicuspid Aortic Valve S/P AVR Continue ASA, Coumadin INR: therapeutic: 3.3 Takes 7.5 mg Coumadin daily except( Tue and Jayashree:10mg) at home -- continue coumadin Lumbago/H/O Spinal Stenosis: Stable S/P gastric band surgery Stable UA:Microscopic Hematuria Denies any bleeding issues Hb stable On ASA, Coumadin -- repeat UA as outpatient DVT Px: SCDs, INR: therapeutic CODE STATUS: Full code Disposition: d/c home today ff up with PCP in 1 week ff up with staff trainer tomorrow as scheduled (d/c summary to be faxed to staff trainer) Current Inpatient Medications: Current Inpatient Medications Medications (Trade) Dose Ordered Sig/Arvind Route Start Time Stop Time Status Last Admin Dose Admin Miscellaneous Information (Pharmacist Discharge Med Rec Consult) 1 ea UD PRN N/A 10/24/16 00:15 11/23/16 00:14 Ondansetron HCl (Zofran Inj) 4 mg Q6H PRN IV 10/24/16 00:15 11/23/16 00:14 Meclizine HCl (Antivert Tab) 12.5 mg TID PRN PO 10/24/16 00:30 11/23/16 00:29 10/24/16 16:59 12.5 MG Aspirin (Ecotrin Tab) 81 mg QAM PO 10/24/16 09:00 11/23/16 08:59 10/25/16 08:05 81 MG Gabapentin (Neurontin Cap) 900 mg TID PO 10/24/16 09:00 11/23/16 08:59 10/25/16 08:06 900 MG Pantoprazole Sodium (Protonix Tab) 40 mg QAM PO 10/24/16 09:00 11/23/16 08:59 10/25/16 08:05 40 MG Celecoxib (CeleBREX CAP) 200 mg BID PO 10/24/16 09:00 11/23/16 08:59 10/25/16 08:06 200 MG Warfarin Sodium (Coumadin Tab) 7.5 mg SuMoWeFrSa@1600 PO 10/24/16 16:00 11/23/16 15:59 10/24/16 17:00 7.5 MG Miscellaneous (Iv Fluids Completed) 1 ea PRN PRN N/A 10/24/16 02:45 10/24/17 02:44 Warfarin Sodium (Coumadin Tab) 10 mg TuTh@1600 PO 10/26/16 16:00 11/25/16 15:59 Metoprolol Succinate (Toprol Xl Tab) 50 mg QAM PO 10/25/16 09:00 11/24/16 08:59 10/25/16 08:04 50 MG Clonidine HCl (Catapres Tab) 0.1 mg Q6H PRN PO 10/24/16 17:15 11/23/16 17:14 10/24/16 17:30 0.1 MG Tramadol HCl (Ultram Tab) 50 mg Q6H PRN PO 10/24/16 19:00 11/23/16 18:59 10/25/16 08:11 50 MG Telmisartan (Micardis Tab) 80 mg QAM PO 10/26/16 09:00 11/25/16 08:59 Hydrochlorothiazide (Hydrochlorothiazide Tab) 25 mg QAM PO 10/26/16 09:00 11/25/16 08:59
--- NOTE | 2016-10-25 10:28 | Discharge Instructions ---
Discharge Instructions Date of Service October 25, 2016. Admission Reason for Admission: Tia (Transient Ischemic Attack) Discharge Discharge Diagnosis / Problem: POSSIBLE TRANSIENT ISCHEMIC ATTACK VS. ATYPICAL MIGRAINE Discharge Goals Goal(s): Diagnostic testing, Therapeutic intervention Activity Recommendations Activity Limitations: as noted below (NO HEAVY EXERTION UNTIL RE-EVALUATED BY PRIMARY CARE PHYSICIAN OR ROLL FORGER) . Instructions / Follow-Up Instructions / Follow-Up PLEASE REVIEW YOUR MEDICATION LIST AND FOLLOW INSTRUCTIONS CAREFULLY. ALWAYS BE CAREFUL WITH AMBULATION. FOLLOW UP WITH ROLL FORGER SCHEDULED FOR TOMORROW, AND PRIMARY CARE PHYSICIAN IN 1 WEEK. Risk Factors for Stroke: You can reduce your chances of stroke by working with your medical provider to adopt a healthy lifestyle. Some specific ways to lower your chance of stroke are: * If you are a smoker, now is the time to stop smoking cigarettes * If you are diabetic, improve the control of your blood sugars * Avoid excessive amounts of alcohol * Control high blood pressure * Lose weight if you are overweight * Be sure to lead an active lifestyle * Eat a healthy diet low in salt, cholesterol and fat You should know about other risk factors for stroke that you are unable to control. These include: * Age 55 years or older * Male gender * Certain racial groups: , or / * Family History of Stroke, Mini stroke or Heart Attack * Sickle Cell Disease Current Hospital Diet Patient's current hospital diet: AHA Diet (Heart Healthy) Discharge Diet Recommended Diet: AHA Diet (Heart Healthy) Procedures Procedures Performed: BRAIN MRI, HEAD MRA, NECK MRI, ECHOCARDIOGRAM Pending Studies Studies pending at discharge: yes (REPEAT URINALYSIS) List of pending studies: REPEAT URINALYSIS Laboratory Results Hemoglobin A1c Test 10/23/16 20:45 Range/Units Estimated Average Glucose 105 mg/dl Hemoglobin A1c 5.3 4.5-5.6 % Lipid Panel Test 10/25/16 05:26 Range/Units Triglycerides Level 152 H 0-150 mg/dl Cholesterol Level 183 0-200 mg/dl HDL Cholesterol 39 mg/dl Cholesterol/HDL Ratio 4.7 LDL Cholesterol, Calculated 114 mg/dl Medical Emergencies . Who to Call and When: Medical Emergencies: Call 911 immediately if you experience any of the following warning signs and symptoms of Stroke: * Sudden numbness or weakness of the face, arm or leg, especially on one side of the body * Sudden confusion, trouble speaking or understanding * Sudden trouble seeing in one or both eyes * Sudden trouble walking, dizziness, loss of balance or coordination * Sudden severe headache with no cause Do not delay calling 911 if you experience any warning signs or symptoms of a stroke. Delay in seeking medical attention may affect what treatments can be given to you. . Non-Emergent Contact Non-Emergency issues call your: Primary Care Provider, Director Corporate Compliance Call Non-Emergent contact if: you have a fever, your pain is not controlled, you have any medication questions . Past History Medical & Surgical History: (1) Diabetes (2) GERD (gastroesophageal reflux disease) (3) TIA (transient ischemic attack) (4) Dizziness (5) History of vertigo . "Provider Documentation" section prepared by Matt Chen. . Stroke Core Measures Reason no t-PA for Stroke: Treatment not indicated Reason no antithrom by day 2: Treatment provided - N/A Reason no antithrom at D/C: Treatment provided - N/A Reason no statin at D/C: Drug intolerance Reason no anticoag w/a fib: Drug intolerance VTE Core Measure Inpt VTE Proph given/why not?: Warfarin (Coumadin)
--- NOTE | 2016-10-25 10:33 | Discharge Summary ---
Discharge Summary Date of Service October 25, 2016. Discharge Summary Admission Date: Oct 24, 2016 at 00:18 Discharge Date: October 25, 2016 Discharge Disposition: Home Principal Diagnosis: DIZZINESS, ATAXIA, FACIAL NUMBNESS, RESOLVED POSSIBLE TRANSIENT ISCHEMIC ATTACK (TIA), LIKELY EMBOLIC POSSIBLE ATYPICAL MIGRAINE, WITH AURA Secondary Diagnoses/Problems: PLEASE REFER TO HOSPITAL COURSE BELOW. Procedures: MRI OF THE BRAIN WITHOUT AND WITH IV CONTRAST CLINICAL HISTORY: Dizziness. Facial numbness. Transient ischemic attack. COMPARISON STUDY: Head CT October 23, 2016. TECHNIQUE: Utilizing a 1.5 Fela magnet and dedicated coil, multiplanar, multiecho imaging of the brain was performed pre and postcontrast administration. IV administration of 14 mL of Gadavist contrast was uneventful. FINDINGS: There are no areas of restricted diffusion. No acute intracranial hemorrhage, midline shift or mass effect is present. Brain volume is normal. Ventricular system is normal. Basilar cisterns are patent. There are no extra axial collections. Flow-voids for the major intracranial vessels are present. There are no intracranial masses or areas of pathologic enhancement. An old 7 mm lacunar infarct within the left cerebellar hemisphere corresponds to the abnormality on prior head CT. A few white matter T2 hyperintense foci suggest minimal small vessel disease. IMPRESSION: 1. No acute intracranial findings. 2. No intracranial masses or pathologic enhancement. 3. 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 MRA OF THE INTRACRANIAL CIRCULATION WITHOUT CONTRAST CLINICAL HISTORY: Dizziness. Facial numbness. COMPARISON STUDY: None. TECHNIQUE: Utilizing a 1.5 Fela magnet and 3-D [id number] technique, unenhanced MRA of the intracranial circulation was obtained. FINDINGS: This exam is mildly compromised by motion artifact. The bilateral M1, M2, A1 and A2 segments are patent. The posterior circulation is intact. The left vertebral artery is dominant. Sensitivity for detection of small aneurysms is diminished but none are identified on this examination. There is no abrupt vessel cut off. There is persistence of the left posterior cerebral artery. IMPRESSION: Unremarkable MRA of the intracranial circulation. MRA OF THE NECK WITH AND WITHOUT CONTRAST CLINICAL HISTORY: Dizziness. Facial numbness. Transient ischemic attack. COMPARISON STUDY: Carotid ultrasound October 24, 2016. TECHNIQUE: Unenhanced and contrast-enhanced MRA of the neck was performed. Injection of 14 mL of Magnevist IV was uneventful. NASCET criteria were utilized to estimate the degree of carotid stenosis. FINDINGS: The bilateral common carotid and internal carotid arteries are patent. There is no significant stenosis within the vessels. The left vertebral artery is dominant and patent. There is moderate stenosis at origin the right vertebral artery. No dissection is noted within major vasculature of the neck. IMPRESSION: 1. No stenosis of the bilateral common carotid and internal carotid arteries. 2. Dominant, patent left vertebral artery. Moderate stenosis at the origin the right vertebral artery. Consultations: NEUROLOGIST DR. LYNN LUNA Pending Studies/Follow-Up: PLEASE REPEAT URINALYSIS TO FOLLOW UP MICROSCOPIC HEMATURIA. Medication Reconciliation Continued Medications: Aspirin (Aspirin Ec) 81 Mg Tab 81 MG PO QAM Celecoxib (CeleBREX) 200 Mg Cap 200 MG PO DAILY AT AM & NOON, CAP Gabapentin (Neurontin) 300 Mg Cap 900 MG PO TID, CAP Metoprolol Succ (Toprol Xl) (Toprol-Xl) 50 Mg Tabcr 50 MG PO QAM, #30 TAB Multiple Vitamins W/ Minerals (Multivitamin Men 50+) 1 Tab Tab 1 TAB PO QAM Omeprazole (Omeprazole) 20 Mg Tab 20 MG PO QAM for 90 Days, #90 TAB 3 Refills Sildenafil Citrate (Viagra) 50 Mg Tab 50 MG PO PRN PRN for PRN, TAB Telmisartan/Hctz (Micardis Hct 40MG/12.5MG) Tab 2 TABS PO QAM, TAB DOSE 80MG/25MG. Tramadol (Ultram) 50 Mg Tab 50 MG PO Q8H PRN for Pain, TAB Warfarin Sodium (Coumadin) Unknown Strength Tab Unknown Dose PO BID, TAB PER MD ORDERS Admission Information HPI (per Admitting provider): Patient is a 56 Yr old male with PMH of HTN, Spinal stenosis, H/O Bicuspid aortic valve S/P AVR, Lumbago and other problems presents with history of sudden onset of dizziness which started around 5.30PM today. Patient states he had an episode of vertigo 2 yrs ago but these symptoms seemed to be different. She states experiencing "room spinning" sensation associated with difficulty to balance himself. States dizziness improves with closing his eyes and worsens with movement. Also states having nausea, bilateral lower extremity weakness and right sided facial tingling/numbness sensation which lasted for more than an hour. Currently he still feels he has some numbness of his face and his bilateral leg weakness is improving. Also states having right sided retrobulbar headache which is chronic for him. Denies any history of speech difficulty, facial deformity, fall, head trauma, blurry or double vision, bowel/bladder incontinence, chest pain, SOB, fever, chills, diarrhea, urinary symptoms. He takes Aspirin and Coumadin and denies missing his doses. 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 DIZZINESS, ATAXIA, FACIAL NUMBNESS POSSIBLE TRANSIENT ISCHEMIC ATTACK (TIA), LIKELY EMBOLIC POSSIBLE ATYPICAL MIGRAINE, WITH AURA -- CT head: showed: age-indeterminate lacunar infarct of left cerebellar hemisphere. -- Brain MRI: 1. No acute intracranial findings. 2. No intracranial masses or pathologic enhancement. 3. Old 7 mm lacunar infarct within left cerebellar hemisphere which corresponds to the abnormality on prior head CT Head MRA: Unremarkable MRA of the intracranial circulation. Neck MRA: 1. No stenosis of the bilateral common carotid and internal carotid arteries. 2. Dominant, patent left vertebral artery. Moderate stenosis at the origin the right vertebral artery. Echo: * -- Conclusions -- * This study is technically limited. * Atrial septum appears to be intact but contrast study was poor. * There is a bioprosthetic aortic valve. * There is moderate concentric left ventricular hypertrophy. * Ejection Fraction = 60-65%. * The right ventricular systolic function is normal. * If clinically indicated, recommend DIO -- evaluated by Neurologist- Dr. Luna episode felt to be either embolic TIA vs. Atypical Migraine with aura -- recommend to continue Aspirin, Coumadin intolerant to statins no further recommendations -- ff up with Certified Indoor Environmentalist and PCP LACUNAR INFARCT, CHRONIC - seen on Brain MRI: Old 7 mm lacunar infarct within left cerebellar hemisphere which corresponds to the abnormality on prior head CT - no previous CVA history per patient - recommend to continue Aspirin, Coumadin intolerant to statins - continue stringent risk factor control HYPERTENSION - mildly elevated given PRN Clonidine - resume usual Metoprolol, Telmisartan/HCTZ ff up as outpatient Bicuspid Aortic Valve S/P AVR INR: therapeutic: 3.3 Takes 7.5 mg Coumadin daily except( Tue and Jayashree:10mg) at home -- continue coumadin ff up with Certified Indoor Environmentalist Lumbago/H/O Spinal Stenosis: Stable S/P gastric band surgery Stable UA:Microscopic Hematuria - urine RBC 10-30 Denies any bleeding issues Hb stable On ASA, Coumadin -- repeat UA as outpatient Disposition: d/c home today ff up with PCP in 1 week ff up with pigskin trimmer tomorrow as scheduled (d/c summary to be faxed to pigskin trimmer) Total time spent on discharge = 40 minutes This includes examination of the patient, discharge planning, medication reconciliation, and communication with other providers. Discharge Instructions Discharge Instructions Date of Service October 25, 2016. Admission Reason for Admission: Tia (Transient Ischemic Attack) Discharge Discharge Diagnosis / Problem: POSSIBLE TRANSIENT ISCHEMIC ATTACK VS. ATYPICAL MIGRAINE Discharge Goals Goal(s): Diagnostic testing, Therapeutic intervention Activity Recommendations Activity Limitations: as noted below (NO HEAVY EXERTION UNTIL RE-EVALUATED BY PRIMARY CARE PHYSICIAN OR DRAFTER APPRENTICE) . Instructions / Follow-Up Instructions / Follow-Up PLEASE REVIEW YOUR MEDICATION LIST AND FOLLOW INSTRUCTIONS CAREFULLY. ALWAYS BE CAREFUL WITH AMBULATION. FOLLOW UP WITH DRAFTER APPRENTICE SCHEDULED FOR TOMORROW, AND PRIMARY CARE PHYSICIAN IN 1 WEEK. Risk Factors for Stroke: You can reduce your chances of stroke by working with your medical provider to adopt a healthy lifestyle. Some specific ways to lower your chance of stroke are: * If you are a smoker, now is the time to stop smoking cigarettes * If you are diabetic, improve the control of your blood sugars * Avoid excessive amounts of alcohol * Control high blood pressure * Lose weight if you are overweight * Be sure to lead an active lifestyle * Eat a healthy diet low in salt, cholesterol and fat You should know about other risk factors for stroke that you are unable to control. These include: * Age 55 years or older * Male gender * Certain racial groups: , or / * Family History of Stroke, Mini stroke or Heart Attack * Sickle Cell Disease Current Hospital Diet Patient's current hospital diet: AHA Diet (Heart Healthy) Discharge Diet Recommended Diet: AHA Diet (Heart Healthy) Procedures Procedures Performed: BRAIN MRI, HEAD MRA, NECK MRI, ECHOCARDIOGRAM Pending Studies Studies pending at discharge: yes (REPEAT URINALYSIS) List of pending studies: REPEAT URINALYSIS Laboratory Results Hemoglobin A1c Test 10/23/16 20:45 Range/Units Estimated Average Glucose 105 mg/dl Hemoglobin A1c 5.3 4.5-5.6 % Lipid Panel Test 10/25/16 05:26 Range/Units Triglycerides Level 152 H 0-150 mg/dl Cholesterol Level 183 0-200 mg/dl HDL Cholesterol 39 mg/dl Cholesterol/HDL Ratio 4.7 LDL Cholesterol, Calculated 114 mg/dl Medical Emergencies . Who to Call and When: Medical Emergencies: Call 911 immediately if you experience any of the following warning signs and symptoms of Stroke: * Sudden numbness or weakness of the face, arm or leg, especially on one side of the body * Sudden confusion, trouble speaking or understanding * Sudden trouble seeing in one or both eyes * Sudden trouble walking, dizziness, loss of balance or coordination * Sudden severe headache with no cause Do not delay calling 911 if you experience any warning signs or symptoms of a stroke. Delay in seeking medical attention may affect what treatments can be given to you. . Non-Emergent Contact Non-Emergency issues call your: Primary Care Provider, Certified Indoor Environmentalist Call Non-Emergent contact if: you have a fever, your pain is not controlled, you have any medication questions . Past History Medical & Surgical History: (1) Diabetes (2) GERD (gastroesophageal reflux disease) (3) TIA (transient ischemic attack) (4) Dizziness (5) History of vertigo . "Provider Documentation" section prepared by Matt Chen. . Stroke Core Measures Reason no t-PA for Stroke: Treatment not indicated Reason no antithrom by day 2: Treatment provided - N/A Reason no antithrom at D/C: Treatment provided - N/A Reason no statin at D/C: Drug intolerance Reason no anticoag w/a fib: Drug intolerance VTE Core Measure Inpt VTE Proph given/why not?: Warfarin (Coumadin)
[2016-10-25] MEDS ORDERED: TELMISARTAN 40 MG TAB PO ONE (11:00)
[2016-10-25 11:13] VITALS: BP 164/104; PULSE 71; TEMP 36.5; O2SAT 96
[2016-10-26] MEDS ORDERED: TELMISARTAN 40 MG TAB PO SCH (09:00)
[2016-10-26] MEDS ORDERED: HCTZ PO SCH (09:00)
[2016-10-26] MEDS ORDERED: TELMISARTAN PO SCH (09:00)
[2016-10-26] MEDS ORDERED: HYDROCHLOROTHIAZIDE 25 MG TAB PO SCH (09:00)
[2016-10-26] MEDS ORDERED: WARFARIN SOD 10 MG TAB PO SCH (16:00)
== END 2016-10-25 12:20 | disposition home or self-care (01) ==
LOC: ENRESERVDT → ENRESERVTM → C.EDB 21:15 → C.2E 10-24 00:18
PROVIDERS: ADMIT Internal Medicine; ATTEND Internal Medicine
DX: R42 Dizziness and giddiness (principal); E11.9 Type 2 diabetes mellitus without complications; K21.9 Gastro-esophageal reflux disease without esophagitis; M48.00 Spinal stenosis, site unspecified; R31.29 Other microscopic hematuria; I10 Essential (primary) hypertension; Z87.891 Personal history of nicotine dependence; Z79.82 Long term (current) use of aspirin; Z79.899 Other long term (current) drug therapy; Z96.653 Presence of artificial knee joint, bilateral; Z95.2 Presence of prosthetic heart valve; Z79.01 Long term (current) use of anticoagulants; Z86.73 Personal history of transient ischemic attack (TIA), and cerebral infarction without residual deficits